=== PATIENT | male | born 1975 | race Caucasian/White ===

== ENCOUNTER 2017-05-17 21:44 | Emergency (ER) | payer MEDICAID, OTHER ==
[~2017-05-17] VITALS: Ht 177.8 cm; Wt 102.8 kg
[~2017-05-17 21:44] MED LIST: CHLO25CA10 PO; PHE12.5T PO
[2017-05-18] MEDS ORDERED: chlordiazePOXIDE 25mg capsule PO ONE (00:45)
[2017-05-18] MEDS ORDERED: GABA-532 PO (00:45)
[2017-05-18 01:01] VITALS: BP 151/96
== END 2017-05-18 01:04 | disposition home or self-care (01) ==
LOC: ER 21:45
DX: F10.239 Alcohol dependence with withdrawal, unspecified (principal); Y90.9 Presence of alcohol in blood, level not specified
CPT/HCPCS: 99283